=== PATIENT | male | born 1955 | race Caucasian/White ===

== ENCOUNTER 2017-08-08 05:45 | Day surgery (SDC) | payer MEDICARE, OTHER ==
[~2017-08-08] VITALS: Ht 165.1 cm; Wt 86.8 kg
[2017-08-08] MEDS ORDERED: LIDOCAINE HCL 2% 30 ML JELLY TP ONE (05:46)
[2017-08-08] MEDS ORDERED: LIDOCAINE HCL 4% 50 ML SOLUTION TP ONE (05:46)
[2017-08-08] MEDS ORDERED: BENZOCAINE 20% 50 MCG/SPRAY 57 GM TP ONE (05:46)
[2017-08-08] MEDS ORDERED: EPINEPHrine 1:1,000 [1 MG/ML] AMP IM ONE (05:46)
[2017-08-08] MEDS ORDERED: ALBUTEROL SULFATE 2.5 MG/0.5 ML NEB SOLUTION NEB ONE (05:46)
[2017-08-08] MEDS ORDERED: SODIUM CHLORIDE 0.9% 1,000 ML IV ONE ×3 (05:56→08:02)
[2017-08-08 06:28] LABS: GLUCOSE,POINT OF CARE 118 MG/DL (70-110)
[2017-08-08] MEDS ORDERED: PRAV40TA4 PO (06:39)
[2017-08-08] MEDS ORDERED: INSU100C14 SQ (06:39)
[2017-08-08] MEDS ORDERED: NPH,100V SQ ×2 (06:39)
[2017-08-08] MEDS ORDERED: ASPI81TA39 PO (06:39)
[2017-08-08] MEDS ORDERED: GABA-529 PO (06:39)
[2017-08-08] MEDS ORDERED: LISI-661 PO (06:39)
[2017-08-08] MEDS ORDERED: FentaNYL CITRATE-PF 100 MCG/2 ML VIAL ONE (07:27)
[2017-08-08] MEDS ORDERED: MIDAZOLAM HCL 2 MG/2 ML VIAL ONE (07:27)
[2017-08-08] MEDS ORDERED: MethylPREDNISolone SOD SUCC 125 MG/2 ML VIAL IVP ONE (08:30)
[2017-08-08] MEDS ORDERED: MethylPREDNISolone SOD SUCC 125 MG/2 ML VIAL ONE (08:51)
[2017-08-08] MEDS ORDERED: OXYGEN THERAPY IH SCH (20:00)
== END 2017-08-08 09:45 | disposition home or self-care (01) ==
LOC: SURGERY 05:45
PROVIDERS: ATTEND Internal Medicine Critical Care Medicine
DX: J38.4 Edema of larynx (principal); B37.0 Candidal stomatitis; E11.9 Type 2 diabetes mellitus without complications; I10 Essential (primary) hypertension; M54.9 Dorsalgia, unspecified; M19.90 Unspecified osteoarthritis, unspecified site; D71 Functional disorders of polymorphonuclear neutrophils; Z79.4 Long term (current) use of insulin; Z98.42 Cataract extraction status, left eye; Z98.890 Other specified postprocedural states
CPT/HCPCS: 31623; 31624; 71010; 82962; 87015 ×2; 87070; 87101; 87205; 87220; 88108; 88184; 88185; 88312; J0171; J2250; J2930; J3010; J7030